=== PATIENT | female | born 1980 | race African-American/Black ===

== ENCOUNTER 2017-05-16 21:18 | Emergency (ER) | payer MEDICAID ==
[~2017-05-16] VITALS: Ht 154.9 cm; Wt 64.0 kg
[~2017-05-16 21:18] MED LIST: IBUP-1008
[2017-05-16 22:40] VITALS: BP 120/77
[2017-05-17] MEDS ORDERED: ACETAMINOPHEN 500MG TABLET PO ONE (00:45)
== END 2017-05-17 01:56 | disposition home or self-care (01) ==
LOC: ER 21:18
DX: S60.211A Contusion of right wrist, initial encounter (principal); W22.8XXA Striking against or struck by other objects, initial encounter; Y93.89 Activity, other specified; Y92.89 Other specified places as the place of occurrence of the external cause; Y99.8 Other external cause status
CPT/HCPCS: 73110; 99284